=== PATIENT | female | born 1995 | race Two or more races ===

== ENCOUNTER 2025-01-10 19:49 | Emergency (ER) | payer MEDICAID, OTHER ==
[~2025-01-10] VITALS: Ht 170.2 cm; Wt 69.6 kg
--- NOTE | 2025-01-10 20:08 | ED.PDOC ---
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 Patient reports that she has been experiencing right lower back pain, RLQ, and RUQ abdominal tenderness for the past 3 hours with associated headache, subjective fever, and nausea for the past 2 days. Patient relays that she is currently 12 weeks and is . Patient states that her pain is 9/10. Patient denies any dysuria, hematuria, vaginal bleeding, chills, vomiting, or diarrhea. 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 History 2 Para 1 Family History Family History: Reviewed,noncontributory to illness Social History Smoker: Non-Smoker Alcohol: Denies ETOH Use Drugs: Denies Drug Use Lives In: Home Constitutional: reports: fever; denies: chills, diaphoresis, fatigue, malaise, sweats, weakness, others EENTM: denies: blurred vision, double vision, ear bleeding, ear discharge, ear drainage, ear pain, ear ringing, eye pain, eye redness, hearing loss, mouth pain, mouth swelling, nasal discharge, nose bleeding, nose congestion, nose pain, photophobia, tearing, throat pain, throat swelling, voice changes, others Respiratory: denies: cough, hemoptysis, orthopnea, SOB at rest, shortness of breath, SOB with excertion, stridor, wheezing, others Cardiovascular: denies: chest pain, dizzy spells, diaphoresis, Dyspnea on exertion, edema, irregular heart beat, left arm pain, lightheadedness, palpitations, PND, syncope, others Gastrointestinal: reports: abdominal pain, nausea; denies: abdomen distended, blood streaked bowels, constipated, diarrhea, dysphagia, difficulty swallowing, hematemesis, melena, poor appetite, poor fluid intake, rectal bleeding, rectal pain, vomiting, others Genitourinary: reports: ; denies: abnormal vagina bleeding, burning, dyspareunia, dysuria, flank pain, frequency, hematuria, incontinence, pain, vagina discharge, urgency, others Neurological: reports: headache; denies: dizziness, fainting, left sided numbn ess, left sided weakness, numbness, paresthesia, pre-existing deficit, right sided numbness, right sided weakness, seizure, speech problems, tingling, tremors, weakness, others Musculoskeletal: denies: back pain, gout, joint pain, joint swelling, muscle pain, muscle stiffness, neck pain, others Integumetry: denies: bruises, change in color, change in hair/nails, dryness, laceration, lesions, lumps, rash, wounds, others Allergic/Immunocompromised: denies: Difficulty Healing, Frequent Infections, Hives, Itching, others Hematologic/Lymphatic: denies: anemia, blood clots, easy bleeding, easy bruising, swollen glands, others Endocrine: denies: excessive hunger, excessive sweating, excessive thirst, excessive urination, flushing, intolerance to cold, intolerance to heat, unexplained weight gain, unexplained weight loss, others Psychiatric: denies: anxiety, bipolar disorder, depression, hopeless, panic disorder, schizophrenia, sleepless, suicidal, others All Other Systems: Reviewed and Negative Physical Exam General Appearance: No Apparent Distress, Normal HEENT: Normal ENT Inspection, Pharynx Normal, TMs Normal Neck: Full Range of Motion, Non-Tender, Normal, Normal Inspection Respiratory: Chest Non-Tender, Lungs Clear, No Accessory Muscle Use, No Respiratory Distress, Normal Breath Sounds Cardiovascular: No Edema, No JVD, No Murmur, No Gallop, Normal Peripheral Pulses, Regular Rate/Rhythm Breast Exam: Deferred Gastrointestinal: No Organomegaly, No Pulsatile Mass, Normal Bowel Sounds, Soft, Tenderness (RLQ and RUQ tenderness.) Genitalia: Deferred Pelvic: Deferred Rectal: Deferred Extremities: No calf tenderness, Normal capillary refill, Normal inspection, Normal range of motion, Non-tender, No pedal edema Musculoskeletal : Apperance: Normal Neurologic: 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 Was a procedure done?: No Differential Diagnosis (COAT MAKER) Vaginal Bleeding: - Complete, - Incomplete, - Inevitable, - Missed, - Threatened, UTI Comments Biliary tract disease, appendicitis, among others X-Ray, Labs, Meds, VS Vital Signs Date Time Temp Pulse Resp B/P (MAP) Pulse Ox O2 Delivery O2 Flow Rate FiO2 01/10/25 22:01 97.9 87 18 99/70 (80) 98 97.9 01/10/25 19:50 99.3 95 20 107/69 (82) 97 99.3 Lab Test 01/10/25 20:25 01/10/25 20:16 Range/Units White Blood Count 8.3 4.4-10.8 10^3/uL Red Blood Count 4.30 4.0-5.20 10^6/uL Hemoglobin 12.7 12.2-16.2 g/dL Hematocrit 36.8 36.0-46.0 % Mean Corpuscular Volume 85.6 80.0-100.0 fL Mean Corpuscular Hemoglobin 29.5 28.0-32.0 pg Mean Corpuscular Hemoglobin Concent 34.4 32.0-36.0 g/dL Red Cell Distribution Width 12.3 11.8-14.3 % Platelet Count 156 140-450 10^3/uL Mean Platelet Volume 9.3 6.9-10.8 fL Neutrophils (%) (Auto) 81.1 H 37.0-80.0 % Lymphocytes (%) (Auto) 5.6 L 10.0-50.0 % Monocytes (%) (Auto) 12.9 H 0.0-12.0 % Eosinophils (%) (Auto) 0.1 0.0-7.0 % Basophils (%) (Auto) 0.3 0.0-2.0 % Neutrophils # (Auto) 6.7 1.6-8.6 10 ^3/uL Lymphocytes # (Auto) 0.5 0.4-5.4 10 ^3/uL Monocytes # (Auto) 1.1 0-1.3 10 ^3/uL Eosinophils # (Auto) 0 0-0.8 10 ^3/uL Basophils # (Auto) 0 0-0.2 10 ^3/uL Nucleated Red Blood Cells 0.0 % Sodium Level 137 136-145 mmol/L Potassium Level 3.7 3.5-5.1 mmol/L Chloride Level 105 98-107 mmol/L Carbon Dioxide Level 21 20-31 mmol/L Anion Gap 11 5-15 Blood Urea Nitrogen 6 L 9-23 mg/dL Creatinine 0.64 0.550-1.02 mg/dL Glomerular Filtration Rate Calc 124 >90 mL/min BUN/Creatinine Ratio 9.4 L 10.0-20.0 Serum Glucose 124 H 74-106 mg/dL Calcium Level 9.7 8.7-10.4 mg/dL Urine Color Yellow Yellow Urine Clarity Clear Clear Urine pH 5.5 5.0-9.0 Urine Specific [place] 1.021 1.001-1.035 Urine Protein Negative Negative Urine Ketones 4+ H Negative Urine Blood Negative Negative /uL Urine Nitrite Negative Negative Urine Bilirubin Negative Negative Urine Urobilinogen Normal Negative mg/dL Urine Leukocyte Esterase Negative Negative /uL Urine RBC <1 0 - 4 /hpf Urine Microscopic WBC 1 0-5 /HPF Urine Squamous Epithelial Cells Few <5 /hpf Urine Bacteria None seen None Seen /hpf Urine Mucus Few None Seen Urine Glucose Normal Normal mg/dL X-Ray, Labs, Meds, VS Comment Addendum by Dr. Chata Dhaliwal: 29-year-old female with current 12 week endorsed to me by Dr. Patterson to f/u on UA results. Right lower quadrant ultrasound did not show the appendix or secondary signs of appendicitis Right upper quadrant ultrasound was unremarkable Ob ultrasound showed a single live intrauterine with heart rate in the 170s CBC and basic metabolic panel unremarkable UA is positive for ketones but otherwise unremarkable, not consistent with UTI Patient's symptoms may be due to viral syndrome. Po tylenol was ordered for the patient. Patient was called several times for re- evaluation but did not answer. It was assumed the pt had eloped. Rx Tylenol Time of 1ST Reevaluation: 21:05 Reevaluation 1ST: Unchanged Time of 2ND Reevaluation: 23:14 Reevaluation 2ND: no answer from [facility] Patient Education/Counseling: Diagnosis, Treatment, Prognosis, Need For Follow Up Family Education/Counseling: No Family Present Comments so far, US of appendix, gb, ob are all unremarkable. vss, labs are normal, but we are still waiting for UA. i will sign out to Dr Brizuela Additional Information Reviewed patient's previous visit(s): None The following tests were ordered, and results were reviewed by me: OB US, Abdomen complete US, CBC, BMP, UA Additional information was gathered from interviewing the following independent historian: None I reviewed and agreed with the following test results read by other provider: OB US, Abdomen complete US I discussed treatments and results with medical personnel and: Patient Comprehensive systems review obtained and negative except for what is stated in the HPI. Departure 1 Departure Time of Disposition: 21:58 Impression: Primary Impression: Abdominal pain Additional Impression: Disposition: LEFT AWOL/ELOPED Condition: Stable Additional Instructions: Your blood tests were unremarkable. Your urine test did not show any infection. Your ultrasounds showed a single live intrauterine with normal heart rate, and was otherwise unremarkable with regard to your symptoms. I have prescribed medication for pain and fever. Follow-up with your OBGYN in 1-2 days. Return to ER for persistent or worsening symptoms. e-Prescriptions Acetaminophen (Tylenol Extra Strength) 500 Mg Tab 1000 MG PO Q6HP PRN, #30 TAB Prov: XIOMARA FAULKNER MD 01/10/25 Discharged With: Relative Critical Care Note Critical Care Time?: No Stability Stability form required: No Heart Score Heart Score: Heart Score Response (Comments) Value History N/A 0 EKG N/A 0 Age N/A 0 Risk Factors N/A 0 Troponin N/A 0 Total 0 I personally scribed for MAYITO PATTERSON MD ([email or web address]) on 01/10/25 at 20:08. Electronically submitted by Alberto Hoyos ([email or web address]). I personally scribed for MAYITO PATTERSON MD ([email or web address]) on 01/10/25 at 20:08. Electronically submitted by Alberto Hoyos ([email or web address]). MAYITO PATTERSON MD Jan 10, 2025 20:08 XIOMARA FAULKNER MD Jan 10, 2025 23:16
[2025-01-10 20:33] LABS: Hematocrit 36.8 % (36.0-46.0); Hemoglobin 12.7 g/dL (12.2-16.2); Mean Corpuscular Hemoglobin 29.5 pg (28.0-32.0); Mean Corpuscular Volume 85.6 fL (80.0-100.0); Nucleated Red Blood Cells % 0.0 %
[2025-01-10 20:46] LABS: Chloride 105 mmol/L (98-107); Potassium 3.7 mmol/L (3.5-5.1); Sodium 137 mmol/L (136-145)
[2025-01-10 20:47] LABS: Anion Gap 11 (5-15); Calcium 9.7 mg/dL (8.7-10.4); Carbon Dioxide 21 mmol/L (20-31)
[2025-01-10 20:52] LABS: BUN/Creatinine Ratio 9.4 (10.0-20.0)
[2025-01-10 21:00] LABS: Blood Urea Nitrogen 6 mg/dL (9-23); Glucose 124 mg/dL (74-106)
--- NOTE | 2025-01-10 21:28 | DVH ---
Procedure: US RIGHT LOWER QUAD Study Date and Requested Time: 01/10/2025 08:57 PM History: RLQ PAIN Comparison: None Technique: Multiple high resolution bazan-scale images obtained of the right quadrant of the abdomen with color Doppler for evaluation of blood flow and vascularity as indicated. Findings /impression: The appendix is not visualized. No free fluid or masses are noted. Without visualization of the appen dirk, can not exclude acute appendicitis. If there is persistent concern for acute appendicitis, CT wi th contrast may be considered for further evaluation.
--- NOTE | 2025-01-10 21:28 | DVH ---
Procedure: US ABDOMEN LIMITED Study Date and Requested Time: 01/10/2025 08:59 PM History: ruq PAIN Comparison: None Technique: Multiple high resolution bazan-scale images obtained of the right upper quadrant of the abd omen with color Doppler for evaluation of blood flow and vascularity as indicated. Findings: Liver normal in size, measuring 13.3 cm in length, with homogenous echotexture and normal contours. N o evidence of focal hepatic lesions, intrahepatic or extrahepatic ductal dilatation. Common bile duct measures 0.3 cm in diameter. Gallbladder unremarkable with no evidence of abnormal wall thickening, gallstones, biliary sludge, or pericholecystic fluid. Negative sonographic Birch's sign. Pancreas only partially visualized due to overlying bowel gas but is otherwise unremarkable. Right kidney measures 11.4 cm in length, with normal contours, echotexture, and cortical thickness. N o evidence of hydronephrosis, calculi, cystic or solid renal lesions. Partially visualized inferior vena cava unremarkable. Impression: Unremarkable sonographic study of the right upper quadrant of the abdomen.
--- NOTE | 2025-01-10 21:33 | DVH ---
Procedure: US OB ULTRASOUND COMP LESS 14WKS Study Date and Requested Time: 01/10/2025 08:48 PM Study Description: US OB ULTRASOUND COMP LESS 14WKS History: abdominal pain, 12 weeks Comparison: None Technique: Multiple high resolution bazan-scale images obtained of the uterus, fetus, and other gestat ional components with M-mode scanning for evaluation of heart rate. Findings: Single live intrauterine with gestational sac, and fetus visualized. heart rate of 1 76 bpm. Estimated gestational age 12 weeks/ 1 day based on mean gestational sac diameter of 6.09 cm a nd crown-rump length of 5.52 cm. Anterior placenta is noted. No evidence of previa or abruption. Subchorionic hemorrhage is noted measuring about 3.9 x 1.9 x 8.5 cm Uterus measures 14.9 x 12.5 x 3.4 cm in size. Cervical os appears closed. Right ovary measures 1.9 x 1.6 x 1.2 cm. Left ovary measures 2.8 x 2.5 x 1.6 cm. Normal ovarian color Doppler flow bilaterally. No evidence of cystic or solid ovarian lesions. No evidence of free fluid in the cul-de-sac. Impression: Single live intrauterine with heart rate of 176 bpm. Estimated gestational age 12 wee ks/ 1 day with estimated date of confinement 07/24/2025 3.9 x 1.9 x 8.5 cm subchorionic hemorrhage is noted.
[2025-01-10 22:01] VITALS: BP 99/70; PULSE 87; RESP 18; TEMP 97.9; O2SAT 98
[2025-01-10 22:54] LABS: Urine Protein, UAD Negative (Negative)
[2025-01-10] MEDS ORDERED: ACETAMINOPHEN 500 MG TAB or CAP PO ONE (23:15)
[2025-01-10] MEDS ORDERED: ACET-1304 PO (23:15)
== END 2025-01-11 00:14 | disposition home or self-care (01) ==
LOC: ER 19:53
DX: O26.891 Other specified pregnancy related conditions, first trimester (principal); R10.11 Right upper quadrant pain; M54.50 Low back pain, unspecified; Z3A.12 12 weeks gestation of pregnancy
CPT/HCPCS: 36415; 76705; 76801; 80048; 81001; 85025